=== PATIENT | male | born 1975 | race Caucasian/White ===

== ENCOUNTER 2017-11-20 21:01 | Emergency (ER) | END 2017-11-20 23:09 | disposition left against medical advice (07) ==

== ENCOUNTER 2017-11-21 16:23 | Emergency (ER) | END 2017-11-21 17:29 | disposition home or self-care (01) ==

== ENCOUNTER 2018-07-20 17:08 | Emergency (ER) | END 2018-07-20 19:46 | disposition home or self-care (01) ==